=== PATIENT | male | born 1955 | race Caucasian/White ===

== ENCOUNTER 2019-07-07 14:22 | Inpatient (IN) | payer MEDICAID ==
[~2019-07-07] VITALS: Ht 170.2 cm; Wt 84.0 kg
[2019-07-07] MEDS ORDERED: heparin 10,000 units/1 ML INJ IV PRN (14:40)
[2019-07-07] MEDS ORDERED: heparin 10,000 units/1 ML INJ IV ONE (14:40)
[2019-07-07] MEDS ORDERED: NO HOME MEDS (14:41)
[2019-07-07] MEDS ORDERED: atorvastatin 20mg tablet PO SCH (14:45)
[2019-07-07 14:49] LABS: BASOPHILS # (AUTO) 0.1 X10'3 (0-0.2); BASOPHILS % (AUTO) 0.5 % (0-1); EOSINOPHILS % (AUTO) 0.2 % (0-6); HEMATOCRIT 52.5 % (42.0-52.0); LYMPHOCYTES # (AUTO) 1.3 X10'3 (1.1-4.8); LYMPHOCYTES % (AUTO) 9.6 % (21-51); MEAN CORPUSCULAR HEMOGLOBIN 31.5 PG (27.0-31.0); MEAN CORPUSCULAR HGB CONC 34.6 g/dL (33.0-36.5); MEAN CORPUSCULAR VOLUME 91.2 FL (78-98); MEAN PLATELET VOLUME 9.7 FL (7.4-10.4); MONOCYTES % (AUTO) 7.2 % (2-12); NEUTROPHILS # (AUTO) 11.6 X10'3 (1.8-7.7); NEUTROPHILS % (AUTO) 82.5 % (42-75); PLATELET COUNT 163 X10'3 (140-440); RED BLOOD COUNT 5.76 X10'6 (4.70-6.10); RED CELL DISTRIBUTION WIDTH 13.6 % (11.5-14.5); WHITE BLOOD COUNT 14.1 X10'3 (4.5-11.0)
[2019-07-07 14:52] LABS: HEMOGLOBIN 18.2 g/dl (14.0-17.9)
[2019-07-07] MEDS: atorvastatin 20mg tablet PO ONE ×2 (14:56→15:12)
[2019-07-07 15:02] LABS: PARTIAL THROMBOPLASTIN TIME 54 SECONDS (22-32)
[2019-07-07 15:06] LABS: ALANINE AMINOTRANSFERASE 25 U/L (12-78); ALBUMIN/GLOBULIN RATIO 1.1 (1.1-1.5); ALKALINE PHOSPHATASE 91 IU/L (46-116); ANION GAP 10 (8-16); ASPARTATE AMINO TRANSFERASE 10 U/L (10-37); BILIRUBIN,TOTAL 0.5 MG/DL (0.1-1.0); BLOOD UREA NITROGEN 12 MG/DL (7-18); BUN/CREATININE RATIO 12.8 (5.4-32.0); CALCIUM 8.9 MG/DL (8.5-10.1); CHLORIDE 99 MMOL/L (99-107); CREATININE 0.94 MG/DL (0.60-1.10); GLUCOSE 138 MG/DL (70-104); SODIUM 138 MMOL/L (135-145); TOTAL CARBON DIOXIDE 28.6 MMOL/L (24-32); TOTAL PROTEIN 7.8 G/DL (6.4-8.2); eGFR 81 ML/MIN
[2019-07-07] MEDS: heparin 25,000 UNIT/250ml bag 250 ML IV SCH ×2 (15:07→22:26)
--- NOTE | 2019-07-07 15:10 | NUR ---
Dr Singletary made aware of sternal chest pain 10/17 at this time. No new orders, will continue to monitor.
[2019-07-07] MEDS ORDERED: atorvastatin 20mg tablet PO ONE (15:15)
[2019-07-07] MEDS ORDERED: acetaminophen w/codeine (30MG) #3 tablet PO ONE (15:45)
--- NOTE | 2019-07-07 15:52 | NUR ---
ECHO BEING DONE
--- NOTE | 2019-07-07 16:00 | NUR ---
Pt's family member expressed concern over the patient's BP and pain level. BP 134/112. Pt's BP cuff repositioned and checked again, 137/93 with HR 97 and sinus. Pt's family member reports they just gave him pain medication. Primary nurse notified of the above.
[2019-07-07] MEDS ORDERED: mag hydrox/Alum hydrox/simeth 30ml oral suspension PO PRN (16:25)
[2019-07-07] MEDS ORDERED: magnesium 2GM in 50ml NS 50 ML IV PRN (16:25)
[2019-07-07] MEDS ORDERED: magnesium Cl slow-release 64mg tablet PO PRN (16:25)
[2019-07-07] MEDS ORDERED: morphine 2 MG/ML inj. syringe IV PRN ×2 (16:25)
[2019-07-07] MEDS ORDERED: potassium Cl 20 mEq SR tablet PO PRN ×2 (16:25)
[2019-07-07] MEDS ORDERED: acetaminophen 325mg tablet PO PRN (16:25)
[2019-07-07] MEDS ORDERED: potassium CL 10mEq/100ml bag 100 ML IV PRN ×2 (16:25)
[2019-07-07] MEDS ORDERED: magnesium 4gm in 100ml NS 100 ML IV PRN (16:25)
[2019-07-07] MEDS ORDERED: magnesium hydroxide 30ml (MOM) UD suspension PO PRN (16:25)
[2019-07-07] MEDS ORDERED: ondansetron/PF 4mg/2ml inj IV PRN (16:25)
--- NOTE | 2019-07-07 17:33 | NUR ---
Patient going to [facility] 311. I have received report from ZAHRA Loja and had the opportunity to ask questions and assume patient care.
--- NOTE | 2019-07-07 17:55 | NUR ---
Patient arrived on unit. C/o chest pain 7/10, diaphoretic. HR 93, BP 150/102. Respirations 22. Will continue to monitor.
[2019-07-07 18:00] VITALS: BP 150/102
[2019-07-07] MEDS: nitroGLYCERIN 0.4mg SUBLingual tab SL PRN ×2 (18:04→18:13)
[2019-07-07] MEDS ORDERED: morphine 4 MG/ML inj SYRINge IV ONE (18:05)
[2019-07-07] MEDS ORDERED: ketorolac tromethamine 15mg/ml inj. IV PRN (18:20)
[2019-07-07] MEDS ORDERED: ketorolac trometh. 30mg/ml inj. IV ONE (18:30)
--- NOTE | 2019-07-07 18:30 | NUR ---
Stat EKG read by Dr. Triplett: suspected pericarditis. Received orders for 30mg Toradol IV now, 4mg morphine IV Q1H prn severe pain.
--- NOTE | 2019-07-07 18:49 | NUR ---
Problems reprioritized. Patient report given, questions answered & plan of care reviewed with ZAHRA Lindquist.
[2019-07-07] MEDS: K and/or MAG REPLACEMENT MC SCH (19:01)
[2019-07-07] MEDS: morphine 2 MG/ML inj. syringe IV PRN (19:25)
[2019-07-07] MEDS: metoprolol tartrate 12.5mg (1/2 tablet) PO SCH (20:40)
[2019-07-07] MEDS: HYDROcodone/acetaminophen 5mg/325mg tablet PO PRN (21:24)
[2019-07-07 22:00] VITALS: BP 123/83
[2019-07-08] MEDS ORDERED: nitroGLYCERIN 0.2mg/hour patch TD ONE (00:50)
[2019-07-08 02:00] VITALS: BP 116/77
[2019-07-08 02:51] LABS: BASOPHILS # (AUTO) 0.1 X10'3 (0-0.2); BASOPHILS % (AUTO) 0.7 % (0-1); EOSINOPHILS % (AUTO) 0.2 % (0-6); HEMATOCRIT 53.6 % (42.0-52.0); LYMPHOCYTES # (AUTO) 1.4 X10'3 (1.1-4.8); LYMPHOCYTES % (AUTO) 6.7 % (21-51); MEAN CORPUSCULAR HEMOGLOBIN 31.6 PG (27.0-31.0); MEAN CORPUSCULAR HGB CONC 34.5 g/dL (33.0-36.5); MEAN CORPUSCULAR VOLUME 91.5 FL (78-98); MEAN PLATELET VOLUME 9.5 FL (7.4-10.4); MONOCYTES # (AUTO) 1.9 X10'3 (0-0.9); MONOCYTES % (AUTO) 9.2 % (2-12); NEUTROPHILS # (AUTO) 17.4 X10'3 (1.8-7.7); NEUTROPHILS % (AUTO) 83.2 % (42-75); PLATELET COUNT 150 X10'3 (140-440); RED BLOOD COUNT 5.86 X10'6 (4.70-6.10); RED CELL DISTRIBUTION WIDTH 13.6 % (11.5-14.5); WHITE BLOOD COUNT 20.9 X10'3 (4.5-11.0)
[2019-07-08 03:00] LABS: HEMOGLOBIN 18.5 g/dl (14.0-17.9)
[2019-07-08 03:11] LABS: ALBUMIN 3.8 G/DL (3.4-5.0); ANION GAP 9 (8-16); BLOOD UREA NITROGEN 19 MG/DL (7-18); CALCIUM 9.6 MG/DL (8.5-10.1); CHLORIDE 99 MMOL/L (99-107); CHOL/HDL RATIO 3.5 (0.00-4.99); CHOLESTEROL 200 MG/DL (0-200); CREATININE 1.12 MG/DL (0.60-1.10); GLUCOSE 162 MG/DL (70-104); HDL CHOLESTEROL 57 MG/DL (35-60); LDL CHOLESTEROL 116 MG/DL (50-100); POTASSIUM 4.7 MMOL/L (3.5-5.1); SODIUM 135 MMOL/L (135-145); TOTAL CARBON DIOXIDE 26.8 MMOL/L (24-32); TRIGLYCERIDES 68 MG/DL (20-135); eGFR 66 ML/MIN
--- NOTE | 2019-07-08 03:19 | NUR ---
Spoke with Dr. Landrum in regards to patients HGB being 18.5. is aware no orders received.
[2019-07-08] MEDS: heparin 25,000 UNIT/250ml bag 250 ML IV SCH ×2 (03:34→10:58)
[2019-07-08 06:00] VITALS: BP 100/77
--- NOTE | 2019-07-08 06:49 | NUR ---
Problems reprioritized. Patient report given, questions answered & plan of care reviewed with Pat Rn.
[2019-07-08] MEDS ORDERED: aspirin 325mg tablet, delayed-release (Ecotrin) PO SCH (08:00)
[2019-07-08] MEDS: K and/or MAG REPLACEMENT MC SCH ×2 (08:00→20:00)
[2019-07-08] MEDS ORDERED: enoxaparin 40mg/0.4ml syringe SQ SCH (08:00)
[2019-07-08] MEDS: aspirin 325mg tablet, delayed-release (Ecotrin) PO SCH ×3 (08:25→20:00)
[2019-07-08] MEDS: metoprolol tartrate 12.5mg (1/2 tablet) PO SCH ×2 (09:47→19:59)
[2019-07-08] MEDS: morphine 2 MG/ML inj. syringe IV PRN ×2 (10:00→19:59)
[2019-07-08 11:00] VITALS: BP 127/94
--- NOTE | 2019-07-08 11:47 | NUR ---
PAGER ID: [phone] MESSAGE: [id number]. Pt. was seen by cardiology this morning, they did not order any test. Can we feed this patient? ACCE [id number]
[2019-07-08] MEDS: HYDROcodone/acetaminophen 5mg/325mg tablet PO PRN (13:32)
--- NOTE | 2019-07-08 17:30 | NUR ---
NO C/O AT THIS TIME. HEPARIN GTT STOPPED PER DR. VASQUEZ'S ORDER. Addendum: 07/08/19 at 2032 by Stephanie Cunha RN Amended: Links added.
[2019-07-08 18:00] VITALS: BP 129/85
[2019-07-08 20:00] VITALS: BP 125/88
[2019-07-09] MEDS: morphine 2 MG/ML inj. syringe IV PRN (01:02)
[2019-07-09 01:37] LABS: BASOPHILS # (AUTO) 0.1 X10'3 (0-0.2); BASOPHILS % (AUTO) 0.7 % (0-1); EOSINOPHILS # (AUTO) 0.1 X10'3 (0-0.9); EOSINOPHILS % (AUTO) 0.5 % (0-6); HEMATOCRIT 50.9 % (42.0-52.0); HEMOGLOBIN 17.4 g/dl (14.0-17.9); LYMPHOCYTES # (AUTO) 2.1 X10'3 (1.1-4.8); LYMPHOCYTES % (AUTO) 14.7 % (21-51); MEAN CORPUSCULAR HEMOGLOBIN 31.4 PG (27.0-31.0); MEAN CORPUSCULAR HGB CONC 34.1 g/dL (33.0-36.5); MEAN CORPUSCULAR VOLUME 92.2 FL (78-98); MEAN PLATELET VOLUME 10.2 FL (7.4-10.4); MONOCYTES # (AUTO) 1.5 X10'3 (0-0.9); MONOCYTES % (AUTO) 10.8 % (2-12); NEUTROPHILS # (AUTO) 10.4 X10'3 (1.8-7.7); NEUTROPHILS % (AUTO) 73.3 % (42-75); PLATELET COUNT 125 X10'3 (140-440); RED BLOOD COUNT 5.52 X10'6 (4.70-6.10); RED CELL DISTRIBUTION WIDTH 13.6 % (11.5-14.5); WHITE BLOOD COUNT 14.2 X10'3 (4.5-11.0)
[2019-07-09 01:47] LABS: ALBUMIN 3.3 G/DL (3.4-5.0); ANION GAP 6 (8-16); BLOOD UREA NITROGEN 21 MG/DL (7-18); BUN/CREATININE RATIO 23.1 (5.4-32.0); CALCIUM 9.2 MG/DL (8.5-10.1); CHLORIDE 100 MMOL/L (99-107); CREATININE 0.91 MG/DL (0.60-1.10); GLUCOSE 145 MG/DL (70-104); POTASSIUM 4.1 MMOL/L (3.5-5.1); SODIUM 134 MMOL/L (135-145); TOTAL CARBON DIOXIDE 27.8 MMOL/L (24-32); eGFR 84 ML/MIN
[2019-07-09 02:00] VITALS: BP 109/74
[2019-07-09 06:00] VITALS: BP 113/80
--- NOTE | 2019-07-09 06:10 | NUR ---
Patient in room MED 311. I have received report from Killian SWEENEY and had the opportunity to ask questions and assume patient care.
--- NOTE | 2019-07-09 06:27 | NUR ---
Problems reprioritized. Patient report given to Dennys-ZAHRA, questions answered & plan of care reviewed with .
[2019-07-09] MEDS: K and/or MAG REPLACEMENT MC SCH (07:55)
[2019-07-09] MEDS: metoprolol tartrate 12.5mg (1/2 tablet) PO SCH (07:55)
[2019-07-09] MEDS: aspirin 325mg tablet, delayed-release (Ecotrin) PO SCH (07:55)
[2019-07-09] MEDS ORDERED: METO25TA6 PO (08:56)
[2019-07-09] MEDS ORDERED: ASPI-845 PO (08:56)
[2019-07-09] MEDS ORDERED: ATOR20TA PO (08:56)
[2019-07-09 11:00] VITALS: BP 100/74
--- NOTE | 2019-07-09 13:00 | NUR ---
Pt is stable for discharge per md orders, discharge instructions reviewed w/ pt, [facility] [place], [facility]ed and clean dry dressing in place, pt discharge from unit at 1245 to home, picked up by sister to private vehicle, all belongings w/ pt at time of discharge,
== END 2019-07-09 12:00 | disposition home or self-care (01) | DRG 207 ==
LOC: ER 14:23 → ED HOLD 16:21 → MED 3N 17:40
PROVIDERS: ADMIT Hospitalist; ATTEND Family Medicine
DX: I30.9 Acute pericarditis, unspecified (principal); N17.9 Acute kidney failure, unspecified; D75.1 Secondary polycythemia; E87.1 Hypo-osmolality and hyponatremia; I12.9 Hypertensive chronic kidney disease with stage 1 through stage 4 chronic kidney disease, or unspecified chronic kidney disease; N18.9 Chronic kidney disease, unspecified; D72.829 Elevated white blood cell count, unspecified; E78.5 Hyperlipidemia, unspecified; F17.210 Nicotine dependence, cigarettes, uncomplicated; J44.9 Chronic obstructive pulmonary disease, unspecified; Z80.8 Family history of malignant neoplasm of other organs or systems; Z82.49 Family history of ischemic heart disease and other diseases of the circulatory system; Z71.6 Tobacco abuse counseling
CPT/HCPCS: 36415; 71045; 80048; 80053; 80061; 83735; 84484; 85025; 85610; 85651; 85730; 86885; 86900; 86901; 87081; 93005; 93306; G0378; J1644; J1885; J2270; J2405